=== PATIENT | female | born 1970 | race Caucasian/White ===

== ENCOUNTER → 2016-07-27 | Outpatient (CLI) | payer MEDICARE, MEDICAID ==
--- NOTE | 2016-07-27 16:08 | Diagnostic Imaging Report ---
Indications: Severe dysmenorrhea, history of ovarian cyst, history of Crohn's disease LMP 07/20/16 Technique: Transabdominal and transvaginal real-time grayscale and duplex Doppler imaging of the pelvis was performed. Findings: Comparison: 11-15 Retroverted uterus measures 6.9 x 5.5 x 4.4cm. It demonstrates a 21 mm circumscribed mildly hyperechoic solid mass in its anterior fundal myometrium, intramural to submucosal in location. It contains a second solid hyperechoic mass in its posterior fundal myometrium, 11 mm diameter, intramural to subserosal in location. The endometrial complex measures 4 mm in diameter. It demonstrates mildly distended fluid-filled endometrial canal with small linear echogenic focus within.. 1.5 cm ovoid focus of heterogeneously decreased echogenicity within the central aspect of cervix.. No free fluid is present in the cul-de-sac. Right ovary measures 3.1 x 3.3 x 2.1 cm. It contains a 2.2 cm complex cystic structure with nodular internal focus of intermediate echogenicity.. Duplex Doppler imaging demonstrates normal blood flow. No extra-ovarian abnormality is seen. Left ovary measures 2.7 x 3 x 1.5 cm. It contains several prominent cystic foci, largest 9 mm. 11 mm cystic focus resides adjacent to the left ovary.. Duplex Doppler imaging demonstrates normal blood flow. No extra-ovarian abnormality is seen. IMPRESSION: Uterine myometrial masses as described compatible with fibroids, also previously demonstrated. These may account for patient's symptoms. Small amount of fluid in the endometrial canal, nonspecific. Associated small echogenic focus may represent synechia or small polyp. Nonspecific hypoechoic area in central aspect of cervix. Cervical polyp or fibroid not excludable. Neoplasm not excludable. Complex cystic structure right ovary likely represents hemorrhagic physiologic cyst. Six-week followup recommended. Physiologic left ovarian and paraovarian cysts
--- NOTE | 2016-07-29 10:40 | Diagnostic Imaging Report ---
Indications: Screening Technique: Low dose film screen mammograms of both breasts was performed in craniocaudal, mediolateral oblique projections. Findings: Comparison: 09/08/2013, 12/10/2012, 01/02/2012, 12/21/2011 Skin markers denote nevi on right breast. Skin and nipples remain otherwise unremarkable. Axillae contain benign-appearing lymph nodes. Curvilinear calcific densities corresponding to the bilateral axillary skin surface likely represent deodorant. Parenchyma extremely dense, unchanged. At. No mass, architectural distortion, suspicious microcalcifications, or other abnormalities identified. IMPRESSION: No evidence of malignancy, unchanged BI-RADS category 1: Negative Breast density BI-RADS type D. Recommendation: Routine screening mammography. Dense parenchyma may obscure pathology. This report should not deter further evaluation of any clinically suspicious findings.
== END | disposition home or self-care (01) ==
LOC: MAMMO 11:57
DX: Z12.31 Encounter for screening mammogram for malignant neoplasm of breast (principal); N83.202 Unspecified ovarian cyst, left side; Z87.19 Personal history of other diseases of the digestive system
CPT/HCPCS: 76830; 76856; 77067